=== PATIENT | female | born 1940 | race Caucasian/White ===

== ENCOUNTER 2023-03-23 22:39 | Emergency (ER) | payer MEDICARE ==
[2023-03-23 22:54] VITALS: RESP 18; TEMP 98
[2023-03-23] MEDS ORDERED: TOPICAL SKIN ADHESIVE 1 EACH AMP TOPICAL ONE (23:28)
[2023-03-23] MEDS ORDERED: ACETAMINOPHEN TAB 500 MG TAB PO STA (23:28)
--- NOTE | 2023-03-23 23:32 | ED ---
Fall HPI - General Chief Complaint: Fall Stated Complaint: Fall Time Seen by Provider: 03/23/23 22:55 Source: EMS Mode of arrival: EMS - History of Present Illness Initial Comments: 82-year-old female with past history of dementia who presents to the emergency department for a fall. Her staff there the patient fell and hit the left side of her head. She also sustained a skin tear to the left forearm. The patient is a very poor historian and therefore cannot provide any history. She denies a headache or neck pain. No visual changes. It is not reported that the patient is on any blood thinners. She denies any back pain. Per EMS the patient is at her baseline. The HPI is limited because of the patient's chronic dementia - Related Data Allergies Allergy/AdvReac Type Severity Reaction Status Date / Time adhesive tape AdvReac Unknown Verified 03/23/23 22:54 fentanyl AdvReac Unknown Verified 03/23/23 22:54 morphine AdvReac Unknown Verified 03/23/23 22:54 pravastatin [From Pravachol] AdvReac Unknown Verified 03/23/23 22:54 [id number] Reductase AdvReac Unknown Verified 03/23/23 22:54 Inhibitor Review of Systems ROS Statement: Those systems with pertinent positive or pertinent negative responses have been documented in the HPI. ROS Other: All systems not noted in ROS Statement are negative. Past Medical History Past Medical History: Coronary Artery Disease (CAD), Dementia, Hyperlipidemia, Hypertension, Osteoarthritis (OA), Renal Disease Additional Past Medical History / Comment(s): Renal cancer since 2018 History of Any Multi-Drug Resistant Organisms: None Reported Past Surgical History: No Surgical Hx Reported Past Psychological History: No Psychological Hx Reported Smoking Status: Never smoker Past Alcohol Use History: None Reported Past Drug Use History: None Reported General Exam Limitations: altered mental status General appearance: alert, in no apparent distress Head exam: Present: normocephalic, other (Small hematoma to the left forehead that measures 3 cm x 3 cm) Eye exam: Present: normal appearance, PERRL, EOMI. Absent: scleral icterus, conjunctival injection, periorbital swelling ENT exam: Present: normal exam, mucous membranes moist Neck exam: Present: normal inspection. Absent: tenderness, meningismus, lympha denopathy Respiratory exam: Present: normal lung sounds bilaterally. Absent: respiratory distress, wheezes, rales, rhonchi, stridor Cardiovascular Exam: Present: regular rate, normal rhythm, normal heart sounds. Absent: systolic murmur, diastolic murmur, rubs, gallop, clicks GI/Abdominal exam: Present: soft, normal bowel sounds. Absent: distended, tenderness, guarding, rebound, rigid Extremities exam: Present: normal inspection, full ROM, normal capillary refill. Absent: tenderness, pedal edema, joint swelling, calf tenderness Back exam: Present: normal inspection Neurological exam: Present: alert, oriented X3, CN II-XII intact Psychiatric exam: Present: normal affect, normal mood Skin exam: Present: warm, dry, normal color, other (Skin tear to the left dorsal forearm measuring 4 x 2 cm. No active bleeding. No deep tissue injury). Absent: rash Course Vital Signs 03/23/23 03/24/23 22:50 00:58 Temperature 98.0 F 98.0 F Pulse Rate 62 74 Respiratory 18 18 Rate Blood Pressure 167/78 124/72 O2 Sat by Pulse 100 96 Oximetry Medical Decision Making - Medical Decision Making Was pt. sent in by a medical professional or institution (, PA, CONCRETE PAVER, urgent care, hospital, or chcf...) When possible be specific @ -Patient was sent in by her ECF Did you speak to anyone other than the patient for history (EMS, parent, family, police, friend...)? What history was obtained from this source @ -With the nurse and EMS about the patient's history Did you review nursing and triage notes (agree or disagree)? Why? @ -I reviewed and agree with nursing and triage notes Were old charts reviewed (outside hosp., previous admission, EMS record, old EKG, old radiological studies, urgent care reports/EKG's, ch[facility] records)? Report findings @ -No old charts were reviewed Differential Diagnosis (chest pain, altered mental status, abdominal pain women, abdominal pain men, vaginal bleeding, weakness, fever, dyspnea, syncope, headache, dizziness, GI bleed, back pain, seizure, CVA, palpatations, mental health, musculoskeletal)? @ -Subarachnoid, subdural, epidural, hematoma, concussion, cervical fracture EKG interpreted by me (3pts min.). @ -Not done X-rays interpreted by me (1pt min.). @ -None done CT interpreted by me (1pt min.). @ -Yesterday demonstrates no acute intracranial process U/S interpreted by me (1pt. min.). @ -None done What testing was considered but not performed or refused? (CT, X-rays, U/S, labs)? Why? @ -None What meds were considered but not given or refused? Why? @ -None Did you discuss the management of the patient with other professionals (professionals i.e. , PA, CONCRETE PAVER, lab, RT, psych nurse, social sciences chair, vaccine manager, teacher, chief innovation officer, business case analyst)? Give summary @ -No Was smoking cessation discussed for >3mins.? @ -No Was critical care preformed (if so, how long)? @ -No Were there social determinants of health that impacted care today? How? (Homelessness, low income, unemployed, alcoholism, drug addiction, transportation, low edu. Level, literacy, decrease access to med. care, long term, rehab)? @ -Patient comes from [facility] Was there de-escalation of care discussed even if they declined (Discuss DNR or withdrawal of care, Hospice)? DNR status @ -No What co-morbidities impacted this encounter? (DM, HTN, Smoking, COPD, CAD, Cancer, CVA, ARF, Chemo, Hep., AIDS, mental health diagnosis, sleep apnea, morbid obesity)? @ -Dementia Was patient admitted / discharged? Hospital course, mention meds given and route, prescriptions, significant lab abnormalities, going to OR and other pertinent info. @ -Upon arrival patient was placed into room 17. A thorough history and physical exam was performed. Patient is sent for CT of her head and cervical spine due to her notable head injury which demonstrates no acute intracranial process. I did repair the patient's left forearm using some Dermabond. Patient will be discharged home and needs to follow-up with her primary care doctor in 2-4 days. Return for any new or worsening symptoms. Patient discharged in stable condition Undiagnosed new problem with uncertain prognosis? @ -No Drug Therapy requiring intensive monitoring for toxicity (Heparin, Nitro, Insulin, Cardizem)? @ -No Were any procedures done? @ -No Diagnosis/symptom? @ -Acute fall, acute blunt head trauma, acute left forearm skin tear Acute, or Chronic, or Acute on Chronic? @ -Acute Uncomplicated (without systemic symptoms) or Complicated (systemic symptoms)? @ -Complicated Side effects of treatment? @ -No Exacerbation, Progression, or Severe Exacerbation? @ -No Poses a threat to life or bodily function? How? (Chest pain, [place], [place], pneumonia, PE, COPD, DKA, ARF, appy, cholecystitis, CVA, Diverticulitis, Homicidal, Suicidal, threat to staff... and all critical care pts) @ -No Disposition Clinical Impression: Fall, Head injury, Skin tear Disposition: HOME SELF-CARE Condition: Stable Instructions (If sedation given, give patient instructions): Fall Prevention (ED) Additional Instructions: You scan was negative of your head and neck. Keep the left arm clean and covered. Follow up with your doctor. Return for any new or worsening symptoms. Is patient prescribed a controlled substance at d/c from ED?: No Referrals: Farhat Medrano MD [Primary Care Provider] - 1-2 days Time of Disposition: 00:27
--- NOTE | 2023-03-23 23:54 | CT ---
EXAM: CT Head Without Intravenous Contrast CLINICAL HISTORY: ITS.REASON CT Reason: fall, head injury TECHNIQUE: Axial computed tomography images of the head/brain without intravenous contrast. CTDI is 45.2 mGy and DLP is 1185 mGy-cm. This CT exam was performed using one or more of the following dose reduction techniques: automated exposure control, adjustment of the mA and/or kV according to patient size, and/or use of iterative reconstruction technique. COMPARISON: No relevant prior studies available. FINDINGS: No acute intracranial hemorrhage. No midline shift or mass effect. The territorial orantes-white matter differentiation is maintained throughout. Age-related cerebral volume loss. Periventricular and subcortical white matter hypoattenuation, consistent with chronic microangiopathy. The visualized orbits appear grossly unremarkable. The calvarium is intact. The visualized paranasal sinuses and mastoid air cells are grossly clear. IMPRESSION: No acute intracranial hemorrhage, midline shift, or mass effect. EXAM: CT Cervical Spine Without Intravenous Contrast CLINICAL HISTORY: ITS.REASON CT Reason: fall, head injury TECHNIQUE: Axial computed tomography images of the cervical spine without intravenous contrast. CTDI is 13.5 mGy and DLP is 410.8 mGy-cm. This CT exam was performed using one or more of the following dose reduction techniques: automated exposure control, adjustment of the mA and/or kV according to patient size, and/or use of iterative reconstruction technique. COMPARISON: No relevant prior studies available. FINDINGS: The vertebral body heights are maintained. The craniocervical junction is intact. The atlanto-dens interval is maintained. The dens is intact. There is no spondylolisthesis. Multilevel cervical spondylosis and degenerative disc disease. Straightening of the cervical lordosis. The unenhanced neck soft tissues are grossly unremarkable. The visualized lung apices are grossly clear. IMPRESSION: No acute fracture or subluxation of the cervical spine.
[2023-03-24 01:00] VITALS: BP 124/72; PULSE 74
== END 2023-03-24 01:03 | disposition home or self-care (01) ==
LOC: EC 22:39
DX: S09.90XA Unspecified injury of head, initial encounter (principal); S51.812A Laceration without foreign body of left forearm, initial encounter; I25.10 Atherosclerotic heart disease of native coronary artery without angina pectoris; I10 Essential (primary) hypertension; Z91.09 Other allergy status, other than to drugs and biological substances; Z88.5 Allergy status to narcotic agent; Z88.6 Allergy status to analgesic agent; Z88.8 Allergy status to other drugs, medicaments and biological substances; W18.30XA Fall on same level, unspecified, initial encounter
CPT/HCPCS: 12001; 70450; 72125; 99284

== ENCOUNTER 2023-06-12 02:53 | Emergency (ER) | payer MEDICARE ==
[2023-06-12] MEDS ORDERED: MAG HYDROX/AL HYDROX/SIMETH 30 ML, HYOSCYAMINE ELIXIR 10 ML, LIDOCAINE VISCOUS 2% 10 ML PO STA ×3 (03:01)
[2023-06-12 03:13] VITALS: RESP 18; TEMP 98.3
--- NOTE | 2023-06-12 03:30 | ED ---
General Adult HPI - General Stated complaint: Chest Pain Time Seen by Provider: 06/12/23 02:55 Source: EMS, RN notes reviewed, old records reviewed Mode of arrival: EMS - History of Present Illness Initial comments: Patient is an 82-year-old female who presents from her nursing facility [facility] complaint for possible chest pain. Per EMS, patient at approximately 0030 described a warm sensation between her breasts. They gave her an and acid and a glass of water. The event she called EMS to have her brought to the emergency department for evaluation for chest pain. Patient at baseline is alert and oriented 0-1. States she did have some discomfort and points towards her epigastric region but currently is not having the same discomfort. Denies any shortness of breath. Denies any fevers, chills, cough. No other acute complaints. Presents for further evaluation at this time. Patient does have a history of dementia. Is obviously a poor historian. - Related Data Allergies Allergy/AdvReac Type Severity Reaction Status Date / Time adhesive tape AdvReac Unknown Verified 06/12/23 03:06 fentanyl AdvReac Unknown Verified 06/12/23 03:06 morphine AdvReac Unknown Verified 06/12/23 03:06 pravastatin [From Pravachol] AdvReac Unknown Verified 06/12/23 03:06 [id number] Reductase AdvReac Unknown Verified 06/12/23 03:06 Inhibitor Review of Systems ROS Statement: Those systems with pertinent positive or pertinent negative responses have been documented in the HPI. Review of Systems: CONST: Denies fever EYES: Denies blurry vision ENT: Denies nasal congestion C/V: Denies Chest pain RESP: Denies shortness of breath GI: Denies abdominal pain : Denies dysuria SKIN: Denies rash. MSK: Denies joint pain. NEURO: Denies headache ROS Other: All systems not noted in ROS Statement are negative. Past Medical History Past Medical History: Coronary Artery Disease (CAD), Dementia, Hyperlipidemia, Hypertension, Osteoarthritis (OA), Renal Disease Additional Past Medical History / Comment(s): Renal cancer since 2018 History of Any Multi-Drug Resistant Organisms: None Reported Past Surgical History: No Surgical Hx Reported Past Psychological History: No Psychological Hx Reported Smoking Status: Never smoker Past Alcohol Use History: None Reported Past Drug Use History: None Reported General Exam - General Exam Comments Initial Comments: General: Appears in no acute distress. HEAD: Normal with no signs of head trauma. EYES: PERRLA, EOMI, conjunctiva normal, no discharge. ENT: Hearing grossly intact, normal oropharynx. RESPIRATORY: Clear breath sounds bilaterally. No wheezes, rales, or rhonchi. C/V: Regular rate and rhythm. S1 and S2 auscultated, no edema, peripheral pulses 2+ and intact throughout ABD: Abd is soft, nontender, nondistended EXT: Normal range of motion, no obvious deformity SKIN: No rashes or lesions observed on exposed skin. NEURO: Alert and oriented x 4. Cranial nerves II-XII intact. No focal sensory or strength deficits. Course Vital Signs 06/12/23 06/12/23 06/12/23 02:59 04:05 05:05 Temperature 98.3 F Pulse Rate 76 70 66 Respiratory 18 18 18 Rate Blood Pressure 127/71 130/58 127/72 O2 Sat by Pulse 97 97 97 Oximetry Medical Decision Making - Medical Decision Making Was pt. sent in by a medical professional or institution (Dr. PA, FROG OR OYSTER FARMWORKER, urgent care, hospital, or assisted...) When possible be specific @ -No Did you speak to anyone other than the patient for history (EMS, parent, family, police, friend...)? What history was obtained from this source @ -EMS provided most the patient's recent history and HPI Did you review nursing and triage notes (agree or disagree)? Why? @ -I reviewed and agree with nursing and triage notes Were old charts reviewed (outside hosp., previous admission, EMS record, old EKG, old radiological studies, urgent care reports/EKG's, assisted records)? Report findings @ -Old charts reviewed Differential Diagnosis (chest pain, altered mental status, abdominal pain women, abdominal pain men, vaginal bleeding, weakness, fever, dyspnea, syncope, headache, dizziness, GI bleed, back pain, seizure, CVA, palpatations, mental health, musculoskeletal)? @ -Differential Chest Pain: Stable Angina, Unstable Angina, STEMI, NSTEMI Aortic Dissection, Pneumothorax, Musculoskeletal, Esophageal Spasm GERD, Cholecystitis, Pancreatitis, Zoster, this is not meant to be an all-inclusive list. EKG interpreted by me (3pts min.). @ -As above X-rays interpreted by me (1pt min.). @ -Chest x-ray reveals no obvious acute cardiopulmonary process. CT interpreted by me (1pt min.). @ -None done U/S interpreted by me (1pt. min.). @ -None done What testing was considered but not performed or refused? (CT, X-rays, U/S, labs)? Why? @ -None What meds were considered but not given or refused? Why? @ -None Did you discuss the management of the patient with other professionals (professionals i.e. , PA, FROG OR OYSTER FARMWORKER, lab, RT, psych nurse, elementary school social worker, assembler and tester electronics, teacher, commissioned defence force officer, outsole caser)? Give summary @ -No Was smoking cessation discussed for >3mins.? @ -No Was critical care preformed (if so, how long)? @ -No Were there social determinants of health that impacted care today? How? (Homelessness, low income, unemployed, alcoholism, drug addiction, t ransportation, low edu. Level, literacy, decrease access to med. care, m[facility], rehab)? @ -No Was there de-escalation of care discussed even if they declined (Discuss DNR or withdrawal of care, Hospice)? DNR status @ -No What co-morbidities impacted this encounter? (DM, HTN, Smoking, COPD, CAD, Cancer, CVA, ARF, Chemo, Hep., AIDS, mental health diagnosis, sleep apnea, morbid obesity)? @ -None Was patient admitted / discharged? Hospital course, mention meds given and route, prescriptions, significant lab abnormalities, going to OR and other pertinent info. @ -Patient is an 82-year-old female who presents for questionable chest pain. Has a history of dementia. Brought from her nursing facility. She is DO NOT RESUSCITATE and has paperwork with her. Does appear endorses that she has a history of CAD. Also history of renal cancer. Patient is at her mental status baseline. We will obtain cardiac workup. She is asymptomatic at this time.Patient already received an aspirin. EKG shows no signs of acute ischemia.Chest x-ray reveals no obvious acute cardi opulmonary process. EKG shows no signs of acute ischemia. Patient's laboratory studies are within acceptable limits including undetectable troponin. We will obtain a second troponin trending purposes, with both these troponins occurring at least 3 hours after the initial onset of symptoms at 0030.Second troponin is undetectable as well. I did the patient. I contacted her power of senior trial attorney, Sohan Silver her son and updated him. He was in agreement with patient being discharged back to her facility. Patient will be discharged back to her facility in good condition. She has remained asymptomatic throughout her stay. Also is asymptomatic from EMS and prior to arrival. I instructed the patient to follow up with their PCP in the next 1-3 days. I explained that the patient should return to the emergency department if they experience any worsening symptoms. Strict return precautions were discussed with the patient. The patient expressed understanding of these instructions. I answered all questions that the patient had. The patient was discharged home in good condition with their prescriptions and follow up information. Undiagnosed new problem with uncertain prognosis? @ -No Drug Therapy requiring intensive monitoring for toxicity (Heparin, Nitro, Insulin, Cardizem)? @ -No Were any procedures done? @ -No Diagnosis/symptom? @ -Atypical chest pain Acute, or Chronic, or Acute on Chronic? @ -Acute Uncomplicated (without systemic symptoms) or Complicated (systemic symptoms)? @ -Uncomplicated Side effects of treatment? @ -none Exacerbation, Progression, or Severe Exacerbation] @ -no Poses a threat to life or bodily function? @ -Unlikely - Lab Data Result diagrams: 06/12/23 03:18 06/12/23 03:18 Lab Results 06/12/23 06/12/23 06/12/23 Range/Units 03:18 03:18 03:18 WBC 8.1 (3.8-10.6) k/uL RBC 4.26 (3.80-5.40) m/uL Hgb 12.8 (11.4-16.0) gm/dL Hct 38.1 (34.0-46.0) % MCV 89.5 (80.0-100.0) fL MCH 30.0 (25.0-35.0) pg MCHC 33.5 (31.0-37.0) g/dL RDW 13.3 (11.5-15.5) % Plt Count 258 (150-450) k/uL MPV 7.4 Neutrophils % 65 % Lymphocytes % 22 % Monocytes % 9 % Eosinophils % 2 % Basophils % 0 % Neutrophils # 5.3 (1.3-7.7) k/uL Lymphocytes # 1.8 (1.0-4.8) k/uL Monocytes # 0.8 (0-1.0) k/uL Eosinophils # 0.2 (0-0.7) k/uL Basophils # 0.0 (0-0.2) k/uL PT 10.8 (10.0-12.5) sec INR 1.0 (<1.2) APTT 19.5 L (22.0-30.0) sec Sodium 141 (137-145) mmol/L Potassium 4.0 (3.5-5.1) mmol/L Chloride 101 (98-107) mmol/L Carbon Dioxide 30 (22-30) mmol/L Anion Gap 10 mmol/L BUN 21 H (7-17) mg/dL Creatinine 0.99 (0.52-1.04) mg/dL Est GFR (CKD-EPI)AfAm 62 (>60 ml/min/1.73 sqM) Est GFR (CKD-EPI)NonAf 54 (>60 ml/min/1.73 sqM) Glucose 106 H (74-99) mg/dL Calcium 9.4 (8.4-10.2) mg/dL Magnesium 2.2 (1.6-2.3) mg/dL Total Bilirubin 0.4 (0.2-1.3) mg/dL AST 27 (14-36) U/L ALT 23 (4-34) U/L Alkaline Phosphatase 70 (38-126) U/L Troponin I (0.000-0.034) ng/mL Total Protein 7.1 (6.3-8.2) g/dL Albumin 3.9 (3.5-5.0) g/dL 06/12/23 06/12/23 Range/Units 03:18 05:06 WBC (3.8-10.6) k/uL RBC (3.80-5.40) m/uL Hgb (11.4-16.0) gm/dL Hct (34.0-46.0) % MCV (80.0-100.0) fL MCH (25.0-35.0) pg MCHC (31.0-37.0) g/dL RDW (11.5-15.5) % Plt Count (150-450) k/uL MPV Neutrophils % % Lymphocytes % % Monocytes % % Eosinophils % % Basophils % % Neutrophils # (1.3-7.7) k/uL Lymphocytes # (1.0-4.8) k/uL Monocytes # (0-1.0) k/uL Eosinophils # (0-0.7) k/uL Basophils # (0-0.2) k/uL PT (10.0-12.5) sec INR (<1.2) APTT (22.0-30.0) sec Sodium (137-145) mmol/L Potassium (3.5-5.1) mmol/L Chloride (98-107) mmol/L Carbon Dioxide (22-30) mmol/L Anion Gap mmol/L BUN (7-17) mg/dL Creatinine (0.52-1.04) mg/dL Est GFR (CKD-EPI)AfAm (>60 ml/min/1.73 sqM) Est GFR (CKD-EPI)NonAf (>60 ml/min/1.73 sqM) Glucose (74-99) mg/dL Calcium (8.4-10.2) mg/dL Magnesium (1.6-2.3) mg/dL Total Bilirubin (0.2-1.3) mg/dL AST (14-36) U/L ALT (4-34) U/L Alkaline Phosphatase (38-126) U/L Troponin I <0.012 <0.012 (0.000-0.034) ng/mL Total Protein (6.3-8.2) g/dL Albumin (3.5-5.0) g/dL - EKG Data -: EKG Interpreted by Me EKG Comments: 12-lead Electrocardiogram Interpretation Note EKG was reviewed and interpreted by myself. 12-lead ECG performed at 0305 is interpreted by me as revealing normal sinus rhythm at a rate of 63 beats per minute. Gregory is normal. MO interval is 168 ms, QRS duration is 91 ms, QTc is 408 ms.. There were no ST or T wave abnormalities to suggest myocardial ischemia or injury. R wave progression across the precordium was satisfactory. By my interpretation this EKG is non-diagnostic for acute ischemia. Disposition Clinical Impression: Chest pain Disposition: HOME SELF-CARE Condition: Good Instructions (If sedation given, give patient instructions): Chest Pain (ED) Is patient prescribed a controlled substance at d/c from ED?: No Referrals: Farhat Medrano MD [Primary Care Provider] - 1-2 days Time of Disposition: 06:19
[2023-06-12 03:38] LABS: Basophils % (A) 0 %; Eosinophils # (A) 0.2 k/uL (0-0.7); Eosinophils % (A) 2 %; HCT 38.1 % (34.0-46.0); HGB 12.8 gm/dL (11.4-16.0); Lymphocytes # (A) 1.8 k/uL (1.0-4.8); Lymphocytes % (A) 22 %; MCHC 33.5 g/dL (31.0-37.0); MCV 89.5 fL (80.0-100.0); Mean Platelet Volume 7.4; Monocytes # (A) 0.8 k/uL (0-1.0); Monocytes % (A) 9 %; Neutrophils # (A) 5.3 k/uL (1.3-7.7); Neutrophils % (A) 65 %; Platelet Count 258 k/uL (150-450); RBC 4.26 m/uL (3.80-5.40); RDW 13.3 % (11.5-15.5); WBC 8.1 k/uL (3.8-10.6)
[2023-06-12 03:44] LABS: Prothrombin Time 10.8 sec (10.0-12.5)
[2023-06-12 03:51] LABS: Partial Thromboplastin Time 19.5 sec (22.0-30.0)
[2023-06-12 04:11] LABS: ALT 23 U/L (4-34); AST 27 U/L (14-36); African American GFR (CKD) 62 (>60 ml/min/1.73 sqM); Albumin 3.9 g/dL (3.5-5.0); Alkaline Phosphatase 70 U/L (38-126); Anion Gap 10 mmol/L; Blood Urea Nitrogen 21 mg/dL (7-17); Calcium 9.4 mg/dL (8.4-10.2); Carbon Dioxide 30 mmol/L (22-30); Chloride 101 mmol/L (98-107); Glucose 106 mg/dL (74-99); Magnesium 2.2 mg/dL (1.6-2.3); Non-African American GFR(CKD) 54 (>60 ml/min/1.73 sqM); Sodium 141 mmol/L (137-145); Total Bilirubin 0.4 mg/dL (0.2-1.3); Total Protein 7.1 g/dL (6.3-8.2)
--- NOTE | 2023-06-12 05:23 | XR ---
EXAM: XR Chest, 2 Views CLINICAL HISTORY: Chest Pain TECHNIQUE: Frontal and lateral views of the chest. COMPARISON: 03/09/2023. FINDINGS: Lungs: No consolidation. Pleural space: Unremarkable. No pneumothorax. Heart: Cardiac silhouette is at the upper limits of normal/mildly enlarged with mild pulmonary vascular congestion, as seen on prior study. Mediastinum: Unchanged. Normal mediastinal contour. Bones/joints: Osseous structures are unchanged. No acute fracture. Soft tissues: Deflated peripherally calcified bilateral breast implants are again noted. IMPRESSION: Cardiac silhouette is at the upper limits of normal/mildly enlarged with mild pulmonary vascular congestion, as seen on prior study.
[2023-06-12 06:52] VITALS: BP 133/80; PULSE 80
== END 2023-06-12 07:26 | disposition home or self-care (01) ==
LOC: EC 02:53
DX: R07.9 Chest pain, unspecified (principal); I10 Essential (primary) hypertension; I25.10 Atherosclerotic heart disease of native coronary artery without angina pectoris; Z88.5 Allergy status to narcotic agent; Z88.8 Allergy status to other drugs, medicaments and biological substances
CPT/HCPCS: 36415; 71046; 80053; 83735; 84484; 85025; 85610; 85730; 93005; 99285

== ENCOUNTER 2023-09-02 20:37 | Emergency (ER) | payer MEDICARE ==
[2023-09-02 20:52] VITALS: TEMP 97
--- NOTE | 2023-09-02 21:16 | ED ---
General Adult HPI - General Chief complaint: Altered Mental Status Stated complaint: Altered Mental, Rule out UTI Time Seen by Provider: 09/02/23 20:39 Source: patient, EMS, RN notes reviewed Mode of arrival: EMS Limitations: altered mental status - History of Present Illness Initial comments: Patient is a pleasant 83-year-old female presenting to the emergency department with concerns for change in mental status. Patient does have chronic dementia a nd confusion. Patient reportedly has had worse symptoms over the past 2 days. Patient states she feels fine has no complaints. - Related Data Home Medications Medication Instructions Recorded Confirmed ALPRAZolam [Xanax] 0.25 mg PO BID PRN 09/02/23 09/02/23 Ammonium Lactate Cream [Lac-Hydrin 1 applic TOPICAL BID@629,199909/02/23 09/02/23 12% Cream] Cerovite-Senior With Lutein 1 tab PO DAILY@79909/02/23 09/02/23 Diclofenac Sodium [Diclofenac 4 gm TOPICAL QID PRN 09/02/23 09/02/23 Sodium 1%] Docusate [Colace] 100 mg PO SUTUTH@79909/02/23 09/02/23 Donepezil [Aricept] 5 mg PO DAILY@79909/02/23 09/02/23 Escitalopram [Lexapro] 20 mg PO DAILY@79909/02/23 09/02/23 Famotidine [Pepcid] 20 mg PO DAILY@79909/02/23 09/02/23 Fexofenadine HCl [Evette Allergy] 180 mg PO DAILY@79909/02/23 09/02/23 Fluticasone Nasal [place] [Flonase 1 spray EA NOSTRIL BID PRN 09/02/23 09/02/23 Nasal [place]] Furosemide [Lasix] 20 mg PO DAILY@79909/02/23 09/02/23 Lactobacillus Acidophilus 1 cap PO DAILY@79909/02/23 09/02/23 [Acidophilus Probiotic] Levothyroxine Sodium [Synthroid] 100 mcg PO MOTUWETHFRSA@79909/02/23 09/02/23 Memantine [Namenda] 10 mg PO BID@799,199909/02/23 09/02/23 Mirabegron [Myrbetriq] 25 mg PO DAILY@0800 09/02/23 09/02/23 Montelukast [Singulair] 10 mg PO DAILY@79909/02/23 09/02/23 QUEtiapine [SEROquel] 25 mg PO BID@799,199909/02/23 09/02/23 Silver Sulfadiazine [SSD 1% Cream] 1 applic TOPICAL DAILY PRN 09/02/23 09/02/23 Spironolactone [Aldactone] 50 mg PO DAILY@79909/02/23 09/02/23 Valsartan [Diovan] 160 mg PO HS@199909/02/23 09/02/23 atenoloL [Tenormin] 25 mg PO DAILY@79909/02/23 09/02/23 busPIRone HCL [Buspar] 7.5 mg PO BID@799,199909/02/23 09/02/23 Previous Rx's Medication Instructions Recorded Nitrofurantoin Monohyd/M-Cryst 100 mg PO Q12HR #20 cap 09/02/23 [Macrobid] Allergies Allergy/AdvReac Type Severity Reaction Status Date / Time adhesive tape Allergy Unknown Verified 09/02/23 21:13 fentanyl Allergy Unknown Verified 09/02/23 21:13 latex Allergy Unknown Verified 09/02/23 21:13 morphine Allergy Unknown Verified 09/02/23 21:13 neomycin Allergy Unknown Verified 09/02/23 21:13 pravastatin [From Pravachol] Allergy Unknown Verified 09/02/23 21:13 [id number]-LjA Reductase Allergy Unknown Verified 09/02/23 21:13 Inhibitor Review of Systems ROS Statement: Those systems with pertinent positive or pertinent negative responses have been documented in the HPI. ROS Other: All systems not noted in ROS Statement are negative. Constitutional: Denies: fever Eyes: Denies: eye pain ENT: Denies: ear pain Respiratory: Denies: cough, dyspnea Cardiovascular: Denies: chest pain Endocrine: Denies: fatigue Gastrointestinal: Denies: abdominal pain Neurological: Reports: as per HPI. Denies: headache Past Medical History Past Medical History: Coronary Artery Disease (CAD), Dementia, Hyperlipidemia, Hypertension, Osteoarthritis (OA), Renal Disease Additional Past Medical History / Comment(s): Renal cancer since 2018 History of Any Multi-Drug Resistant Organisms: None Reported Past Surgical History: No Surgical Hx Reported Past Psychological History: No Psychological Hx Reported Smoking Status: Never smoker Past Alcohol Use History: None Reported Past Drug Use History: None Reported General Exam Limitations: no limitations General appearance: alert, in no apparent distress Head exam: Present: normocephalic Eye exam: Present: normal appearance, PERRL, EOMI ENT exam: Present: normal oropharynx Neck exam: Present: normal inspection Respiratory exam: Present: normal lung sounds bilaterally Cardiovascular Exam: Present: regular rate, normal rhythm GI/Abdominal exam: Present: soft. Absent: tenderness Extremities exam: Present: normal inspection Neurological exam: Present: alert, altered, CN II-XII intact. Absent: motor sensory deficit Expanded Neurological exam: Absent: protecting the airway Patient oriented to: Present: person. Absent: place, time Speech: Present: fluid speech Cranial nerves: EOM's Intact: Normal Motor strength exam: RUE: 5, LUE: 5, RLE: 5, LLE: 5 Eye Response: (4) open spontaneously Motor Response: (6) obeys commands Verbal Response: (4) confused conversation Psychiatric exam: Present: normal affect, normal mood Skin exam: Present: normal color Course Vital Signs 09/02/23 20:39 Temperature 97.0 F L Pulse Rate 67 Respiratory 18 Rate Blood Pressure 146/73 O2 Sat by Pulse 96 Oximetry EKG Findings - EKG Results: EKG: interpreted by YONI, sinus rhythm, normal axis, normal QRS, normal ST/T Medical Decision Making - Medical Decision Making Was pt. sent in by a medical professional or institution (, PA, RATE REVIEWER, urgent care, hospital, or shelter...) When possible be specific @ -Patient sent from [facility] Did you speak to anyone other than the patient for history (EMS, parent, family, police, friend...)? What history was obtained from this source @ -No Did you review nursing and triage notes (agree or disagree)? Why? @ -I reviewed and agree with nursing and triage notes Were old charts reviewed (outside hosp., previous admission, EMS record, old EKG, old radiological studies, urgent care reports/EKG's, shelter records)? Report findings @ -Chart reviewed from [facility] Differential Diagnosis (chest pain, altered mental status, abdominal pain women, abdominal pain men, vaginal bleeding, weakness, fever, dyspnea, syncope, headache, dizziness, GI bleed, back pain, seizure, CVA, palpatations, mental health, musculoskeletal)? @ -Differential Altered Mental Status: Hypoglycemia, DKA, hypercapnia, ETOH, overdose, CO poisoning, trauma, myxedema coma, HTN encephalopathy, infection, encephalitis, psychosis, intercranial hemorrhage, hepatic encephalopathy, meningitis, CVA, this is not meant to be an all-inclusive list EKG interpreted by me (3pts min.). @ -As above X-rays interpreted by me (1pt min.). @ -Chest x-ray without acute process CT interpreted by me (1pt min.). @ -CT scan of the brain shows mild to moderate hydrocephalus, similar. No acute intercranial abnormality. U/S interpreted by me (1pt. min.). @ -None done What testing was considered but not performed or refused? (CT, X-rays, U/S, labs)? Why? @ -None What meds were considered but not given or refused? Why? @ -None Did you discuss the management of the patient with other professionals (professionals i.e. , PA, RATE REVIEWER, lab, RT, psych nurse, social service technician, diesel engine inspector, teacher, hydrographical technical officer, block and case maker)? Give summary @ -Case was discussed with Dr. Johnson, covering for Dr. Decker who does feel patient can be discharged with antibiotics Was smoking cessation discussed for >3mins.? @ -No Was critical care preformed (if so, how long)? @ -No Were there social determinants of health that impacted care today? How? (Homelessness, low income, unemployed, alcoholism, drug addiction, transportation, low edu. Level, literacy, decrease access to med. care, [facility], rehab)? @ -No Was there de-escalation of care discussed even if they declined (Discuss DNR or withdrawal of care, Hospice)? DNR status @ -No What co-morbidities impacted this encounter? (DM, HTN, Smoking, COPD, CAD, Cancer, CVA, ARF, Chemo, Hep., AIDS, mental health diagnosis, sleep apnea, morbid obesity)? @ -None Was patient admitted / discharged? Hospital course, mention meds given and route, prescriptions, significant lab abnormalities, going to OR and other pertinent info. @ -Patient reevaluated and resting comfortably in bed. Patient is alert. Patient will be discharged with antibiotics. Patient will follow-up with [facility] physician Undiagnosed new problem with uncertain prognosis? @ -No Drug Therapy requiring intensive monitoring for toxicity (Heparin, Nitro, Insulin, Cardizem)? @ -No Were any procedures done? @ -No Diagnosis/symptom? @ -Altered mental status, UTI Acute, or Chronic, or Acute on Chronic? @ -Acute, acute Uncomplicated (without systemic symptoms) or Complicated (systemic symptoms)? @ -Default Side effects of treatment? @ -No Exacerbation, Progression, or Severe Exacerbation? @ -No Poses a threat to life or bodily function? How? (Chest pain, [place], [place], pneumonia, PE, COPD, DKA, ARF, appy, cholecystitis, CVA, Diverticulitis, Homicidal, Suicidal, threat to staff... and all critical care pts) @ -No - Lab Data Result diagrams: 09/02/23 21:16 09/02/23 21:16 Lab Results 09/02/23 09/02/23 09/02/23 Range/Units 21:16 21:16 21:16 WBC 8.1 (3.8-10.6) k/uL RBC 4.68 (3.80-5.40) m/uL Hgb 13.9 (11.4-16.0) gm/dL Hct 42.1 (34.0-46.0) % MCV 89.9 (80.0-100.0) fL MCH 29.7 (25.0-35.0) pg MCHC 33.0 (31.0-37.0) g/dL RDW 14.0 (11.5-15.5) % Plt Count 209 (150-450) k/uL MPV 7.4 Neutrophils % 59 % Lymphocytes % 27 % Monocytes % 10 % Eosinophils % 2 % Basophils % 1 % Neutrophils # 4.8 (1.3-7.7) k/uL Lymphocytes # 2.2 (1.0-4.8) k/uL Monocytes # 0.8 (0-1.0) k/uL Eosinophils # 0.1 (0-0.7) k/uL Basophils # 0.1 (0-0.2) k/uL PT 10.5 (10.0-12.5) sec INR 0.9 (<1.2) APTT 24.9 (22.0-30.0) sec Sodium 138 (137-145) mmol/L Potassium 4.4 (3.5-5.1) mmol/L Chloride 108 H (98-107) mmol/L Carbon Dioxide 22 (22-30) mmol/L Anion Gap 8 mmol/L BUN 21 H (7-17) mg/dL Creatinine 0.98 (0.52-1.04) mg/dL Est GFR (CKD-EPI)AfAm 62 (>60 ml/min/1.73 sqM) Est GFR (CKD-EPI)NonAf 54 (>60 ml/min/1.73 sqM) Glucose 105 H (74-99) mg/dL Calcium 9.1 (8.4-10.2) mg/dL Total Bilirubin 0.5 (0.2-1.3) mg/dL AST 39 H (14-36) U/L ALT 20 (4-34) U/L Alkaline Phosphatase 80 (38-126) U/L Troponin I (0.000-0.034) ng/mL Total Protein 6.7 (6.3-8.2) g/dL Albumin 3.8 (3.5-5.0) g/dL Urine Color Urine Appearance (Clear) Urine pH (5.0-8.0) Ur Specific Burkett (1.001-1.035) Urine Protein (Negative) Urine Glucose (UA) (Negative) Urine Ketones (Negative) Urine Blood (Negative) Urine Nitrite (Negative) Urine Bilirubin (Negative) Urine Urobilinogen (<2.0) mg/dL Ur Leukocyte Esterase (Negative) Urine RBC (0-5) /hpf Urine WBC (0-5) /hpf Ur Squamous Epith Cells (0-4) /hpf Urine Bacteria (None) /hpf Hyaline Casts (0-2) /lpf Urine Mucus (None) /hpf 09/02/23 09/02/23 Range/Units 21:16 21:16 WBC (3.8-10.6) k/uL RBC (3.80-5.40) m/uL Hgb (11.4-16.0) gm/dL Hct (34.0-46.0) % MCV (80.0-100.0) fL MCH (25.0-35.0) pg MCHC (31.0-37.0) g/dL RDW (11.5-15.5) % Plt Count (150-450) k/uL MPV Neutrophils % % Lymphocytes % % Monocytes % % Eosinophils % % Basophils % % Neutrophils # (1.3-7.7) k/uL Lymphocytes # (1.0-4.8) k/uL Monocytes # (0-1.0) k/uL Eosinophils # (0-0.7) k/uL Basophils # (0-0.2) k/uL PT (10.0-12.5) sec INR (<1.2) APTT (22.0-30.0) sec Sodium (137-145) mmol/L Potassium (3.5-5.1) mmol/L Chloride (98-107) mmol/L Carbon Dioxide (22-30) mmol/L Anion Gap mmol/L BUN (7-17) mg/dL Creatinine (0.52-1.04) mg/dL Est GFR (CKD-EPI)AfAm (>60 ml/min/1.73 sqM) Est GFR (CKD-EPI)NonAf (>60 ml/min/1.73 sqM) Glucose (74-99) mg/dL Calcium (8.4-10.2) mg/dL Total Bilirubin (0.2-1.3) mg/dL AST (14-36) U/L ALT (4-34) U/L Alkaline Phosphatase (38-126) U/L Troponin I <0.012 (0.000-0.034) ng/mL Total Protein (6.3-8.2) g/dL Albumin (3.5-5.0) g/dL Urine Color Light Yellow Urine Appearance Clear (Clear) Urine pH 5.5 (5.0-8.0) Ur Specific Burkett 1.018 (1.001-1.035) Urine Protein Negative (Negative) Urine Glucose (UA) Negative (Negative) Urine Ketones Negative (Negative) Urine Blood Negative (Negative) Urine Nitrite Negative (Negative) Urine Bilirubin Negative (Negative) Urine Urobilinogen <2.0 (<2.0) mg/dL Ur Leukocyte Esterase Small H (Negative) Urine RBC 2 (0-5) /hpf Urine WBC 15 H (0-5) /hpf Ur Squamous Epith Cells 2 (0-4) /hpf Urine Bacteria Rare H (None) /hpf Hyaline Casts 1 (0-2) /lpf Urine Mucus Occasional H (None) /hpf Disposition Clinical Impression: Altered mental status, Urinary tract infection Disposition: HOME SELF-CARE Condition: Stable Instructions (If sedation given, give patient instructions): Altered Mental Status (ED), Urinary Tract Infection in Women (ED) Additional Instructions: Prescription sent to pharmacy. Please do follow-up with primary care physician in the next day or 2 for recheck. If symptoms continue consider neurology evaluation. Return for difficulty walking, increased change in mental status, fevers, vomiting, worsening symptoms or other concerns. Prescriptions: Nitrofurantoin Monohyd/M-Cryst [Macrobid] 100 mg PO Q12HR #20 cap Is patient prescribed a controlled substance at d/c from ED?: No Referrals: Farhat Medrano MD [Primary Care Provider] - 1-2 days Time of Disposition: 23:21
[2023-09-02 21:34] LABS: Basophils # (A) 0.1 k/uL (0-0.2); Basophils % (A) 1 %; Eosinophils # (A) 0.1 k/uL (0-0.7); Eosinophils % (A) 2 %; HCT 42.1 % (34.0-46.0); HGB 13.9 gm/dL (11.4-16.0); Lymphocytes # (A) 2.2 k/uL (1.0-4.8); Lymphocytes % (A) 27 %; MCH 29.7 pg (25.0-35.0); MCV 89.9 fL (80.0-100.0); Mean Platelet Volume 7.4; Monocytes # (A) 0.8 k/uL (0-1.0); Monocytes % (A) 10 %; Neutrophils # (A) 4.8 k/uL (1.3-7.7); Neutrophils % (A) 59 %; Platelet Count 209 k/uL (150-450); RBC 4.68 m/uL (3.80-5.40); WBC 8.1 k/uL (3.8-10.6)
[2023-09-02 21:38] LABS: Appearance,Urine Clear (Clear); Bacteria,Urine Rare /hpf; Bilirubin,Urine Negative (Negative); Blood,Urine Negative (Negative); Color,Urine Light Yellow; Glucose,Urine (UA) Negative (Negative); Hyaline Casts,Urine 1 /lpf (0-2); Ketones,Urine Negative (Negative); Leukocyte Esterase,Urine Small (Negative); Mucus,Urine Occasional /hpf; Nitrite,Urine Negative (Negative); PH, Urine 5.5 (5.0-8.0); Protein,Urine Negative (Negative); RBC,Urine 2 /hpf (0-5); Specific Gravity,Urine 1.018 (1.001-1.035); Squamous Epithelial Cell,Urine 2 /hpf (0-4); Urobilinogen,Urine <2.0 mg/dL (<2.0); WBC,Urine 15 /hpf (0-5)
[2023-09-02 21:43] LABS: INR 0.9 (<1.2); Partial Thromboplastin Time 24.9 sec (22.0-30.0); Prothrombin Time 10.5 sec (10.0-12.5)
--- NOTE | 2023-09-02 22:00 | XR ---
EXAMINATION TYPE: XR chest 1V DATE OF EXAM: 09/02/2023 COMPARISON: 06/12/2023 HISTORY: 83-year-old female confusion, altered mental status, fall TECHNIQUE: Single frontal view of the chest is obtained. FINDINGS: Collapsed bilateral breast implants are suggested. Borderline heart size. Aorta and pulmon pa vasculature within normal limits. Hazy densities relating to patient body habitus. No gavin conso lidation or pleural effusion seen. IMPRESSION: Borderline heart size. No definite acute process.
--- NOTE | 2023-09-02 22:03 | CT ---
EXAMINATION TYPE: CT brain wo con DATE OF EXAM: 09/02/2023 COMPARISON: 03/23/2023 HISTORY: 83 year-old female altered mental status, confusion TECHNIQUE: Examination was done in axial plane without intravenous contrast. Coronal and sagittal r econstructions performed. CT DLP: 1156.4 mGycm Automated exposure control for dose reduction was used. FINDINGS: There is no evidence of acute intracranial hemorrhage, acute ischemic changes, mass, mass-effect, or extra-axial fluid collection. There is no effacement of cerebral sulci or basal subarachnoid cister ns. Redemonstrated [id number] hydrocephalus. Francis's ratio calculated at 0.37. There is no midli ne shift. Chaudhary-white matter distinction is preserved. Mild to moderate patchy periventricular and deep white matter hypodensity. Prominent dural calcificat ions are redemonstrated. Mild mucosal thickening ethmoid air cells. Mastoid air cells well pneumatized. Cerumen in left granite setter al auditory canal. Orbits and globes are intact. IMPRESSION: 1. Similar mild to moderate hydrocephalus which may in part relate to central cerebral atrophy. Corre late to exclude a component of NPH. 2. Mild to moderate burden of chronic small vessel ischemic disease. Otherwise, no acute intracranial abnormality seen.
[2023-09-02 22:20] LABS: ALT 20 U/L (4-34); African American GFR (CKD) 62 (>60 ml/min/1.73 sqM); Albumin 3.8 g/dL (3.5-5.0); Anion Gap 8 mmol/L; Blood Urea Nitrogen 21 mg/dL (7-17); Calcium 9.1 mg/dL (8.4-10.2); Carbon Dioxide 22 mmol/L (22-30); Chloride 108 mmol/L (98-107); Glucose 105 mg/dL (74-99); Non-African American GFR(CKD) 54 (>60 ml/min/1.73 sqM); Sodium 138 mmol/L (137-145); Total Bilirubin 0.5 mg/dL (0.2-1.3); Total Protein 6.7 g/dL (6.3-8.2)
[2023-09-02 22:27] LABS: AST 39 U/L (14-36); Alkaline Phosphatase 80 U/L (38-126); Potassium 4.4 mmol/L (3.5-5.1)
[2023-09-02] MEDS: cefTRIAXone IN SWFI 1,000 MG/10 ML SYRINGE IVP STA (23:40)
[2023-09-03 00:16] VITALS: BP 139/68; PULSE 60; RESP 16
== END 2023-09-02 23:50 | disposition home or self-care (01) ==
LOC: EC 20:37
DX: N39.0 Urinary tract infection, site not specified (principal); R41.82 Altered mental status, unspecified; I10 Essential (primary) hypertension; I25.10 Atherosclerotic heart disease of native coronary artery without angina pectoris; Z91.040 Latex allergy status; Z88.8 Allergy status to other drugs, medicaments and biological substances; Z88.5 Allergy status to narcotic agent
CPT/HCPCS: 36415; 93005; 80053; 84484; 85025; 85610; 85730; 81001; 87086; 71045; 70450; 99285; 96374; J0696